=== PATIENT | female | born 1995 | race Caucasian/White ===

== ENCOUNTER 2021-06-10 13:22 | Emergency (ER) | payer BC, MEDICAID, SELFPAY ==
--- NOTE | ~2021-06-10 | US_ITS ---
EXAMINATION: US OB <= 14 weeks fetus DATE: 06/10/2021 16:50 INDICATION: Vaginal bleeding cramping during first trimester TECHNIQUE: Real-time pelvic transabdominal and transvaginal ultrasound was performed. COMPARISON: None. FINDINGS: The uterus measures 11.6 x 7.0 x 7.9 cm. There is an intrauterine gestational sac. A yolk sac is identified. heart motion is identified measuring 171 beats per minute (bpm) by M-mode Do ppler. The crown rump length measures 4.0 , which correlates with an estimated gestational age of 10 weeks and 6 day(s) (+/-) 7 day(s). The right ovary measures 3.4 x 2.2 x 2.0 cm. The left ovary measures 3.1 x 2.1 x 1.8 cm. There is nor mal vascular flow in the ovaries. There is no free fluid in the pelvis. IMPRESSION: 1. Live intrauterine with an estimated gestational age of 10 weeks and 6 day(s) (+/-) 7 day (s) and an estimated delivery date of 12/31/2021. Reviewed, dictated and finalized at location A. IMPRESSION: 1. Live intrauterine with an estimated gestational age of 10 weeks an d 6 day(s) (+/-) 7 day(s) and an estimated delivery date of 12/31/2021.
[2021-06-10 15:57] VITALS: BP 134/81; PULSE 71; RESP 18; O2SAT 100
--- NOTE | 2021-06-10 16:12 | ED.GENADULT ---
HPI - General Adult General Chief complaint: ELECTROCHEMIST Time Seen by Provider: 06/10/21 15:52 History of Present Illness HPI narrative: Patient is a 26-year-old female presents the emergency department with chief complaint of vaginal bleeding. The patient reports that she is approximately 12 to 14 weeks and today started having some cramping and noticed that she had a large amount of bleeding and filled a super heavy pad. The patient states that she feels as though her abdomen is not as large as it was previously and is concerned that she may be miscarrying. Patient reports this is her fifth Related Data Home Medications Medication Instructions Recorded Confirmed No Home Medications 06/10/21 06/10/21 Allergies Allergy/AdvReac Type Severity Reaction Status Date / Time adhesive tape Allergy Unknown Hives Verified 06/10/21 16:01 Penicillins Allergy Unknown Hives Verified 06/10/21 16:01 Review of Systems Review of Systems: A 10 system review of systems was completed on the patient and is negative except for what is stated in the HPI. Nursing and ancillary documentation was reviewed. Exam Narrative: GENERAL: Well-appearing, well-nourished, and in no acute distress. HEAD: Normocephalic, atraumatic. EYES: PERRLA and EOMI. ENT: Nares clear, no rhinorrhea or epistaxis. Mucous membranes moist. NECK: Supple. CHEST: Clear to auscultation. No respiratory distress. HEART: Regular rate and rhythm. No murmur heard. Normal peripheral pulses. ABDOMEN: Soft, nontender, nondistended, normal active bowel sounds. EXTREMITIES: Normal range of motion. No edema. SKIN: Warm, dry, no rash. NEURO: No focal deficits. Alert and oriented x3. PSYCH: Normal mood and affect. Course Vital Signs Vital signs: Vital Signs Pulse Rate 71 06/10/21 15:57 Respiratory Rate 18 06/10/21 15:57 Blood Pressure 134/81 06/10/21 15:57 Pulse Oximetry 100 06/10/21 15:57 Pulse Rate 71 06/10/21 15:57 Respiratory Rate 18 06/10/21 15:57 Blood Pressure 134/81 06/10/21 15:57 Pulse Oximetry 100 06/10/21 15:57 Medical Decision Making Vital Signs Vital Signs: Vital Signs Pulse Rate 71 06/10/21 15:57 Respiratory Rate 18 06/10/21 15:57 Blood Pressure 134/81 06/10/21 15:57 Pulse Oximetry 100 06/10/21 15:57 Pulse Rate 71 06/10/21 15:57 Respiratory Rate 18 06/10/21 15:57 Blood Pressure 134/81 06/10/21 15:57 Pulse Oximetry 100 06/10/21 15:57 Lab Data Result diagrams: 06/10/21 16:18 06/10/21 16:18 Labs: Lab Results 06/10/21 06/10/21 06/10/21 Range/Units 16:18 16:18 16:18 WBC 9.3 (4.5-10.0) K/mm3 RBC 4.31 (4.2-5.4) M/mm3 Hgb 12.9 (12.0-15.0) g/dL Hct 37.7 (37.0-47.0) % MCV 87.5 (80-100) fl MCH 29.9 (26-34) pg MCHC 34.2 (32-36) g/dl RDW 12.4 (11.5-14.5) % Plt Count 245 (150-375) k/mm3 MPV 10.1 (7.4-10.4) fl Immature Gran % (Auto) 0.5 (0-0.5) % Neut % (Auto) 72.7 (45.5-73.1) % Lymph % (Auto) 19.2 (18.3-44.2) % Allen % (Auto) 6.8 (2.6-8.5) % Eos % (Auto) 0.3 (0-4.4) % Baso % (Auto) 0.5 (0.2-1.2) % Lymph # (Auto) 1.78 (0.9-3.2) K/mm3 Allen # (Auto) 0.6 (0.1-0.6) K/mm3 Eos # (Auto) 0.0 (0-0.3) K/mm3 Baso # (Auto) 0.1 (0.0-0.1) K/mm3 Abs Immat Gran (auto) 0.05 H (0.00-0.031) K/mm3 Absolute Neuts (auto) 6.7 (1.3-6.7) K/mm3 Absolute Nucleated RBC 0.0 (0.0-0.012) K/mm3 Nucleated RBC % 0.0 (0.0-0.2) % Sodium (137-145) mmol/L Potassium (3.4-5.0) mmol/L Chloride (98-107) mmol/L Carbon Dioxide (22-30) mmol/L Anion Gap (8-16) mmol/L BUN (7-17) mg/dL Creatinine (0.7-1.0) mg/dL Estim Creat Clear Calc ml/min Estimated GFR (59 - ) Glucose (65-110) mg/dL Calcium (8.4-10.2) mg/dL Total Bilirubin (0.2-1.3) mg/dL AST (14-36) U/L ALT (4-35) U/L Alkaline Phosphatase (38-126
[2021-06-10] MEDS: SODIUM CHLORIDE 0.9% IV 1,000 ML 999 ML IV CONT (16:21)
[2021-06-10 16:31] LABS: Basophils Absolute Auto 0.1 K/mm3 (0.0-0.1); Basophils Percent Auto 0.5 % (0.2-1.2); Eosinophils Percent Auto 0.3 % (0-4.4); Hematocrit 37.7 % (37.0-47.0); Hemoglobin 12.9 g/dL (12.0-15.0); Immature Granulocyte Absolute 0.05 K/mm3 (0.00-0.031); Immature Granulocyte Percent A 0.5 % (0-0.5); Lymphocytes Absolute Auto 1.78 K/mm3 (0.9-3.2); Lymphocytes Percent Auto 19.2 % (18.3-44.2); Mean Corpuscular HGB Conc 34.2 g/dl (32-36); Mean Corpuscular Hemoglobin 29.9 pg (26-34); Mean Corpuscular Volume 87.5 fl (80-100); Mean Platelet Volume 10.1 fl (7.4-10.4); Monocytes Absolute Auto 0.6 K/mm3 (0.1-0.6); Monocytes Percent Auto 6.8 % (2.6-8.5); Neutrophils Absolute Auto 6.7 K/mm3 (1.3-6.7); Neutrophils Percent Auto 72.7 % (45.5-73.1); Platelet Count Result 245 k/mm3 (150-375); Red Blood Count 4.31 M/mm3 (4.2-5.4); Red Cell Distribution Width 12.4 % (11.5-14.5); White Blood Count 9.3 K/mm3 (4.5-10.0)
[2021-06-10 16:43] LABS: Add Urine Microscopic? YES; Appearance Urine Cloudy (Clear); Bilirubin Urine Negative (Negative); Blood Urine Negative (Negative); Color Urine Amber (Yellow); Glucose Urine UA Negative (Negative); Ketones Urine 2+ mg/dL (Negative); Leukocyte Esterase Ur Negative LEU/UL (Negative); Mucus Urine Heavy /lpf; Nitrate Urine Negative (Negative); Protein Urine 2+ mg/dL (Negative); Specific Grav Ur 1.029 (1.001-1.035); Squamous Epithelial Cell Urine Many /hpf (Few)
[2021-06-10 16:44] LABS: Alanine Aminotransferase 19 U/L (4-35); Albumin Level 4.9 g/dL (3.5-5.1); Alkaline Phosphatase 56 U/L (38-126); Anion Gap 12 mmol/L (8-16); Aspartate Amino Transferase 30 U/L (14-36); Bilirubin,Total 0.2 mg/dL (0.2-1.3); Blood Urea Nitrogen 9 mg/dL (7-17); Calcium 9.4 mg/dL (8.4-10.2); Carbon Dioxide 23 mmol/L (22-30); Chloride 103 mmol/L (98-107); Estimated CRCL calculation 106 ml/min; Estimated Glomerular Filt Rate > 60; Glucose 92 mg/dL (65-110); Potassium 3.5 mmol/L (3.4-5.0); Sodium 138 mmol/L (137-145)
[2021-06-10 18:39] VITALS: BP 132/76; PULSE 78; RESP 17; O2SAT 100
== END 2021-06-10 18:40 | disposition home or self-care (01) ==
PROVIDERS: Emergency Provider Emergency Medicine
DX: O20.0 Threatened abortion (principal); Z3A.10 10 weeks gestation of pregnancy
CPT/HCPCS: 36415; 76801; 80053; 81001; 84702; 85025; 85461; 87086; 87088; 96360; 99284; J7030

== ENCOUNTER 2021-07-06 18:32 | Observation (INO) | payer BC, MEDICAID, SELFPAY ==
--- NOTE | ~2021-07-06 | US_ITS ---
EXAMINATION: US OB limited EXAM DATE: 07/07/2021 07:30 INDICATION: vaginal bleeding, placenta check, well being VB. 2nd trimester. TECHNIQUE: Pelvic obstetrical transabdominal sonogram was performed by a technologist. There are mu ltiple grayscale and Doppler images available for interpretation. FINDINGS: There is a single fetus identified in breech presentation with a heart rate of 163 beats pe r minute. The placenta is located in the posterior position. Along the Placental Margin there is a fo kimberlee heterogeneous hypoechoic region between which appears to be between the placenta and the uterine wall, suspicious for retroplacental hematoma, region measuring 4.5 cm diameter 1.6 cm in thickness. IMPRESSION: Findings suspicious for small to moderate-sized acute retroplacental hematoma/abruption. I discussed this with nurse Perez at 07/07/2021 07:46 CDT. Reviewed, dictated and finalized at location A. IMPRESSION: Findings suspicious for small to moderate-sized acute retroplacent al hematoma/abruption. I discussed this with nurse Perez at 07/07/2021 07:46 CDT.
[2021-07-06 18:42] VITALS: BP 178/95; PULSE 121; RESP 18; O2SAT 99
--- NOTE | 2021-07-06 18:51 | ED.GENADULT ---
HPI - General Adult General Chief complaint: Vaginal Bleeding Stated complaint: 16 weeks , bleeding Time Seen by Provider: 07/06/21 18:43 Source: RN notes reviewed History of Present Illness HPI narrative: Patient presents emergency department from home for vaginal bleeding. Patient states she is approximately 16 weeks states that she started to have vaginal bleeding with lower abdominal cramping approximately 20 minutes ago. Patient states that she is and is followed by Dr. Malik she states she was seen in the office today and was given a injection of a medication for labor she denies any fevers or chills or any other symptoms Related Data Home Medications Medication Instructions Recorded Confirmed No Home Medications 06/10/21 06/10/21 Allergies Allergy/AdvReac Type Severity Reaction Status Date / Time adhesive tape Allergy Unknown Hives Verified 06/10/21 16:01 Penicillins Allergy Unknown Hives Verified 06/10/21 16:01 Review of Systems Review of Systems: Gen.: Denies fevers or chills ENT: Denies congestion Respiratory: Denies shortness of breath or cough CV: Denies chest pain or palpitations GI: Denies abdominal pain nausea, emesis or diarrhea see HPI Musculoskeletal: Denies back pain or muscle pain Neuro: Denies numbness, tingling, weakness or focal weakness Skin: Denies rash Except as documented, all other systems reviewed and negative COUNTS INCLUDE 234 BEDS AT THE [facility] Past Medical History Medical History (Updated 07/06/21 @ 20:25 by Trenton Dickey DO) Patient denies significant medical history Social History Social History (Updated 07/06/21 @ 18:52 by Trenton Dickey DO) Smoking status: Never smoker Exam Narrative: APPEARANCE: No acute distress, nontoxic, resting in bed EYES: EOMI HEENT: Normocephalic, atraumatic, OMM RESPIRATORY: No respiratory distress Clear to auscultation bilaterally with no rhonchi wheezing or rales. CARDIOVASCULAR: Regular rate and rhythm without murmurs rubs or gallops. ABDOMINAL: Soft, nontender, nondistended, no rebound or guarding : Normal external exam on amount dark maroon blood with clots in vaginal canal cervix is 1 cm no products of conception seen MUSCULOSKELETAl: Moves all extremities. No clubbing, cyanosis or edema. NEURO: Awake and alert. Following commands, speech normal, no focal deficits SKIN:: Warm, dry. No rashes lesions or abrasions PSYCHIATRIC: Normal affect/mood, Course Course Emergency Course: Nursing staff obtain heart tones I use bedside ultrasound and did view a intrauterine Discussed Dr. Malik presentation work-up patient has history of several deliveries at this time recommends admission to his service on the OB floor Discussed with patient and family results of workup and diagnosis. Discussed need for admission. Patient and family understand and agree to current treatment plan Vital Signs Vital signs: Vital Signs Pulse Rate 121 H 07/06/21 18:42 Respiratory Rate 18 07/06/21 18:42 Blood Pressure 178/95 H 07/06/21 18:42 Pulse Oximetry 99 07/06/21 18:42 Pulse Rate 88 07/06/21 19:55 Respiratory Rate 18 07/06/21 19:55 Blood Pressure 155/90 H 07/06/21 19:55 Pulse Oximetry 99 07/06/21 19:55 Medical Decision Making Vital Signs Vital Signs: Vital Signs Pulse Rate 121 H 07/06/21 18:42 Respiratory Rate 18 07/06/21 18:42 Blood Pressure 178/95 H 07/06/21 18:42 Pulse Oximetry 99 07/06/21 18:42 Pulse Rate 88 07/06/21 19:55 Respiratory Rate 18 07/06/21 19:55 Blood Pressure 155/90 H 07/06/21 19:55 Pulse Oximetry 99 07/06/21 19:55 Lab Data Result diagrams: 07/06/21 18:59 Labs: Lab Results 07/06/21 07/06/21 07/06/21 Range/Units 18:59 18:59 18:59 WBC 14.2 H (4.5-10.0) K/mm3 RBC 3.78 L (4.2-5.4) M/mm3 Hgb 11.7 L (12.0-15.0) g/dL Hct 33.4 L (37.0-47.0) % MCV 88.4 (80-100) fl MCH 31.0 (26-34) pg MCHC 3
[2021-07-06 19:06] LABS: Basophils Percent Auto 0.2 % (0.2-1.2); Eosinophils Absolute Auto 0.1 K/mm3 (0-0.3); Eosinophils Percent Auto 0.6 % (0-4.4); Hematocrit 33.4 % (37.0-47.0); Hemoglobin 11.7 g/dL (12.0-15.0); Immature Granulocyte Absolute 0.08 K/mm3 (0.00-0.031); Immature Granulocyte Percent A 0.6 % (0-0.5); Lymphocytes Absolute Auto 2.71 K/mm3 (0.9-3.2); Lymphocytes Percent Auto 19.2 % (18.3-44.2); Mean Corpuscular Volume 88.4 fl (80-100); Mean Platelet Volume 10.1 fl (7.4-10.4); Monocytes Absolute Auto 0.7 K/mm3 (0.1-0.6); Monocytes Percent Auto 5.2 % (2.6-8.5); Neutrophils Absolute Auto 10.5 K/mm3 (1.3-6.7); Neutrophils Percent Auto 74.2 % (45.5-73.1); Platelet Count Result 276 k/mm3 (150-375); Red Blood Count 3.78 M/mm3 (4.2-5.4); Red Cell Distribution Width 12.9 % (11.5-14.5); White Blood Count 14.2 K/mm3 (4.5-10.0)
[2021-07-06] MEDS: SODIUM CHLORIDE 0.9% IV 1,000 ML 999 ML IV CONT (19:11)
[2021-07-06 19:55] VITALS: BP 155/90; PULSE 88; RESP 18; O2SAT 99
[2021-07-06 20:30] VITALS: TEMP 36.5
[2021-07-06 20:31] VITALS: BP 135/90; PULSE 70; RESP 20
[2021-07-06 21:00] VITALS: BP 124/75; PULSE 62; RESP 18; BMI 24.5
[2021-07-06 21:01] VITALS: BP 124/75; PULSE 62
--- NOTE | 2021-07-06 21:41 | OBADM ---
This patient, Cinthia Ba, admitted to the OB room Labor/Delivery/Recovery 110 for observation. Patient/family oriented to hospital policies and general routines including ID bracelet, bed and alarms, visiting hours, pain management, procedures, bathroom and other care routines, personal items, smoking policy, room service/diet, and visiting hours. Patient/Family are encouraged to report perceived risks to care and to ask questions if they do not understand what they are told or what they should do.
[2021-07-06 21:56] LABS: Amphetamine Screen Urine Negative (Negative); Barbiturate Screen Urine Negative (Negative); Benzodiazepines Screen Urine Negative (Negative); Cannabinoid Screen Urine Positive (Negative); Cocaine Screen Urine Negative (Negative); Methadone Screen Urine Negative (Negative); Opiate Screen Urine Negative (Negative); Phencyclidine Screen Urine Negative (Negative)
--- NOTE | 2021-07-07 00:34 | PC.NURSE ---
into room to assess pt, pt and family member sleeping.
[2021-07-07 02:41] VITALS: BP 120/72; PULSE 51
[2021-07-07 02:42] VITALS: BP 120/72; PULSE 51; RESP 18; TEMP 36.6
--- NOTE | 2021-07-07 08:25 | PM.IMHP ---
H&P: HPI History of Present Illness Date/Time: 07/07/21 08:25 This patient is a 36-year-old 5 para 0404 with for deliveries who presented with vaginal bleeding to the emergency department. Her bleeding was marked. She was examined and found to have a closed cervix. Her ultrasound showed a viable IUP. This morning she was had a more detailed ultrasound the shoulder a retroplacental hematoma. Her bleeding has resolved at this time. She denies any cramping. She denies any nausea, vomiting, fever, Chills. She denies any chest pain or shortness of breath. Chief Complaint: Vaginal bleeding Review of Systems Constitutional: Constitutional: Denies difficulty sleeping, Denies excessive sweating, Denies fatigue and Denies fever(s) Eyes: Eyes: Denies no additional eye complaints, Denies blind spots, Denies blurry vision, Denies irritation and Denies itchy eyes ENT: Denies dry mouth, Denies ear discharge, Denies facial pain, Denies nasal congestion, Denies nasal discharge, Denies tinnitus and Denies sinus pain Cardiovascular: Cardiovascular: Denies chest pain, Denies edema, Denies irregular heart rhythm, Denies leg edema, Denies lightheadedness and Denies dyspnea on exertion Respiratory: Respiratory: Denies chest congestion, Denies cough, Denies hemoptysis, Denies pain on inspiration and Denies pain with cough Gastrointestinal: Gastrointestinal: Denies no additional gastrointestinal complaints, Denies belching, Denies melena, Denies bloating, Denies hematochezia and Denies change in bowel habits Genitourinary: Genitourinary: Reports as per HPI Musculoskeletal: Musculoskeletal: Denies no additional musculoskeletal complaints, Denies abnormal gait, Denies back pain, Denies myalgias and Denies limited range of motion Integumentary/Breasts: Skin/Breast: Reports system reviewed and no additional complaints, except as docu, Denies swelling, Denies change in pigmentation, Denies changing lesions and Denies dry skin Neurologic: Denies confusion, Denies vertigo, Denies dizziness, Denies headache(s) and Denies lack of coordination Psychiatric: Psychiatric: Denies hopelessness, Denies irritability, Denies anhedonia, Denies memory loss and Denies mood swings Endocrine: Endocrine: Denies deepening of the voice, Denies excessive sweating, Denies fatigue and Denies flushing Hematologic/Lymphatic: Hematologic/Lymphatic: Denies no additional hematologic/lymphatic complaints Allergic/Immunologic: Allergic/Immunologic: Denies no additional allergic/immunologic complaints PMFSH Past Medical History Medical History (Updated 07/07/21 @ 08:30 by Jimmy Malik MD) Patient denies significant medical history Social History Social History (Updated 07/06/21 @ 18:52 by Trenton Dickey DO) Smoking status: Never smoker Meds Home Medications and Allergies Home Medications Medication Instructions Recorded Confirmed Type Classic 1 tablet PO DAILY 07/06/21 07/06/21 History Allergies Allergy/AdvReac Type Severity Reaction Status Date / Time adhesive tape Allergy Unknown Hives Verified 06/10/21 16:01 Penicillins Allergy Unknown Hives Verified 06/10/21 16:01 Vital Signs Vital Signs - 24 hr 07/06/21 18:42 07/06/21 19:55 07/06/21 20:31 Temperature Pulse Rate 121 H 88 70 Respiratory Rate 18 18 Blood Pressure 178/95 H 155/90 H 135/90 Pulse Oximetry 99 99 07/06/21 21:00 07/07/21 02:42 Temperature 97.9 F Pulse Rate 62 51 L Respiratory Rate 18 18 Blood Pressure 124/75 120/72 Pulse Oximetry Exam Const: General: healthy appearing, comfortable and no acute distress Resp: Auscultation: clear to auscultation bilaterally, no rales, no rhonchi and no wheezes Cardio: Rate: regular rate Heart sounds: no click, no murmurs and no rubs GI: Inspection: non-distended Auscultation: normal bowel sounds Extrem: General: normal to inspection, no pedal edema and no calf tenderness H&P: Results Labs L
[2021-07-07 08:28] VITALS: BP 123/61; PULSE 77
== END 2021-07-07 10:01 | disposition home or self-care (01) ==
LOC: ANHED 19:28 → ANHLDR 19:38
PROVIDERS: Admitting Provider Obstetrics & Gynecology; Emergency Provider Emergency Medicine; Visit Provider Obstetrics & Gynecology
DX: O20.0 Threatened abortion (principal); Z3A.15 15 weeks gestation of pregnancy; O45.92 Premature separation of placenta, unspecified, second trimester
CPT/HCPCS: 36415; 76815; 80307; 84702; 85025; 86850; 86900; 86901; 96365; 99285; G0378; J0131; J7030

== ENCOUNTER 2021-08-27 10:19 | Observation (INO) | payer BC, MEDICAID, SELFPAY ==
--- NOTE | ~2021-08-27 | US_ITS ---
US OB limited, US OB transvaginal 08/27/2021 11:51 Indication: Vaginal spotting. Pelvic pressure. Procedure: High-resolution ultrasound of the pelvis including transabdominal and transvaginal examina tion. Comparison: Comparison ultrasound dated 07/07/2021 Findings: There is a single living intrauterine in vertex presentation with heart rat e is 146 BPM. Placenta is fundal without previa. Cervical length is 2.8 cm. Amniotic fluid is subject ively normal. No evidence for subchorionic hemorrhage. Impression: 1: Single living intrauterine in vertex presentation. No significant abnormality identified . Reviewed, dictated and finalized at location B. [employer] Impression: 1: Single living intrauterine in vertex presentation. No significant abnormality identified. Impression: 1: Single living intrauterine in vertex presentation. No significant abnormality identified.
--- NOTE | 2021-08-27 10:19 | OBADM ---
This patient, Cinthia Ba, admitted to the OB room OB Post 115 for observation. Patient/family oriented to hospital policies and general routines including ID bracelet, bed and alarms, visiting hours, pain management, procedures, bathroom and other care routines, personal items, smoking policy, room service/diet, and visiting hours. Patient/Family are encouraged to report perceived risks to care and to ask questions if they do not understand what they are told or what they should do.
[2021-08-27 10:53] VITALS: BP 135/80; PULSE 79; RESP 20; TEMP 36.2
[2021-08-27 11:34] LABS: Add Urine Microscopic? YES; Appearance Urine Cloudy (Clear); Bacteria Urine Trace /hpf; Bilirubin Urine Negative (Negative); Blood Urine 2+ (Negative); Color Urine Yellow (Yellow); Glucose Urine UA Negative (Negative); Ketones Urine Negative (Negative); Leukocyte Esterase Ur Negative LEU/UL (Negative); Mucus Urine Few /lpf; Nitrate Urine Negative (Negative); Protein Urine Negative (Negative); RBC Urine 0-2 /hpf (0-2); Specific Grav Ur 1.021 (1.001-1.035); Squamous Epithelial Cell Urine Occasional /hpf (Few); Urobilinogen Urine Negative mg/dL (<2.0); WBC Urine 0-3 /hpf
[2021-08-27 11:41] VITALS: BMI 26.1
[2021-08-27 12:15] LABS: Fetal Fibronectin Positive
--- NOTE | 2021-10-04 20:17 | P.PNOB_ITS ---
OB - Triage/Final Diagnosis Visit Information Comments/Additional reasons for admission: I have assessed the risk for this patient, Cinthia Ba, and determined that she would benefit from observation care. Evaluation Laboratory results: Laboratory Tests 08/27/21 08/27/21 11:10 11:11 Urine Color Yellow Urine Appearance Cloudy H Urine pH 6.0 Ur Specific Armstrong 1.021 Urine Protein Negative Urine Glucose (UA) Negative Urine Ketones Negative Ur Blood (Man) 2+ H Urine Nitrate Negative Urine Bilirubin Negative Urine Urobilinogen Negative Leukocyte Esterase Rfl Negative Urine RBC 0-2 Urine WBC 0-3 Ur Squamous Epith Cells Occasional Urine Bacteria Trace Urine Mucus Few H Fibronectin Positive Final Diagnosis (1) Vaginal bleeding affecting early : Code(s): O20.9 - Hemorrhage in early , unspecified Status: Acute
== END 2021-08-27 12:59 | disposition home or self-care (01) ==
PROVIDERS: Admitting Provider Obstetrics & Gynecology; Visit Provider Obstetrics & Gynecology
DX: O46.92 Antepartum hemorrhage, unspecified, second trimester (principal); Z3A.22 22 weeks gestation of pregnancy
CPT/HCPCS: 76815; 76817; 81001; 82731; G0378; G0379

== ENCOUNTER 2021-08-28 07:57 | Inpatient (IN) | payer BC, MEDICAID, SELFPAY ==
[2021-08-28] VITALS (46 sets, daily range): BP systolic 104–220; BP diastolic 40–195; PULSE 62–119; O2SAT 97–100; BMI 26.4
[2021-08-28] MEDS: LACTATED RINGERS 1,000 ML 125 ML (08:14)
[2021-08-28] MEDS: BETAMETHASONE SOD PHOS/ACETATE 30 MG/5 ML VIAL 12 MG IM (08:20)
[2021-08-28] MEDS: MAGNESIUM SULF 4 GM/WATER100ML 4 GM/100 ML BAG IVPB (08:22)
[2021-08-28] MEDS: LACTATED RINGERS 1,000 ML 125 ML IV CONT (08:30)
[2021-08-28 08:37] LABS: Basophils Absolute Auto 0.1 K/mm3 (0.0-0.1); Basophils Percent Auto 0.5 % (0.2-1.2); Eosinophils Absolute Auto 0.1 K/mm3 (0-0.3); Eosinophils Percent Auto 0.7 % (0-4.4); Hematocrit 32.4 % (37.0-47.0); Hemoglobin 11.5 g/dL (12.0-15.0); Immature Granulocyte Absolute 0.07 K/mm3 (0.00-0.031); Immature Granulocyte Percent A 0.6 % (0-0.5); Lymphocytes Absolute Auto 2.28 K/mm3 (0.9-3.2); Lymphocytes Percent Auto 20.6 % (18.3-44.2); Mean Corpuscular HGB Conc 35.5 g/dl (32-36); Mean Corpuscular Hemoglobin 30.8 pg (26-34); Mean Corpuscular Volume 86.9 fl (80-100); Monocytes Absolute Auto 0.4 K/mm3 (0.1-0.6); Neutrophils Absolute Auto 8.2 K/mm3 (1.3-6.7); Neutrophils Percent Auto 73.6 % (45.5-73.1); Platelet Count Result 272 k/mm3 (150-375); Red Blood Count 3.73 M/mm3 (4.2-5.4); Red Cell Distribution Width 12.4 % (11.5-14.5); White Blood Count 11.1 K/mm3 (4.5-10.0)
[2021-08-28] MEDS: CLINDAMYCIN 900 MG/D5W 50 ML 900 MG/50 ML PIGGYBACK 50 MG IVPB (08:39)
[2021-08-28] MEDS: OXYTOCIN 30 UNITS/NS 500 ML 30 UNITS/500 ML BAG 999 UNITS IV CONT (08:40)
[2021-08-28 08:43] LABS: Anion Gap 13 mmol/L (8-16); Blood Urea Nitrogen 8 mg/dL (7-17); Calcium 9.2 mg/dL (8.4-10.2); Carbon Dioxide 17 mmol/L (22-30); Chloride 104 mmol/L (98-107); Estimated Glomerular Filt Rate > 60; Glucose 96 mg/dL (65-110); Potassium 3.2 mmol/L (3.4-5.0); Sodium 134 mmol/L (137-145)
--- NOTE | 2021-08-28 08:53 | PM.OBPRVD ---
OB - Delivery Note Procedure Delivery date: 08/28/21 events: Labor < 37 Weeks and Previous Intrapartal events: Precipitous Labor < 3 hours Delivery monitor: external FHT and external uterine Route of delivery: Quantitative Blood Loss (ml): 127 Anesthesia type: Epidural Imperial Baby Date of : 08/28/21 Time of : 08:40 Weeks of gestation at delivery: 23 gender: Male presentation: vertex
--- NOTE | 2021-08-28 08:57 | WPDANESEPPF ---
Anes - Initial Pre Proc Eval Date/Time: 08/28/21 08:57 Surgeon: Jimmy Malik MD Pre Op Diagnosis: Bleeding Patient Data Age: 26 Gender: F Height: Weight: Last Vital Signs Pulse 84 08/28/21 08:55 BP 120/65 08/28/21 08:55 Pulse Ox 100 08/28/21 08:55 Allergies Allergy/AdvReac Type Severity Reaction Status Date / Time adhesive tape Allergy Unknown Hives Verified 06/10/21 16:01 Penicillins Allergy Unknown Hives Verified 06/10/21 16:01 Home Medications Medication Instructions Recorded Confirmed Type Classic 1 tablet PO DAILY 07/06/21 08/27/21 History progesterone micronized 200 mg VAGINAL HS 08/27/21 08/27/21 History Laboratory Tests 08/28/21 08/28/21 08/28/21 08:26 08:26 08:26 WBC 11.1 K/mm3 H K/mm3 (4.5-10.0) RBC 3.73 M/mm3 L M/mm3 (4.2-5.4) Hgb 11.5 g/dL L g/dL (12.0-15.0) Hct 32.4 % L % (37.0-47.0) MCV 86.9 fl fl (80-100) MCH 30.8 pg pg (26-34) MCHC 35.5 g/dl g/dl (32-36) RDW 12.4 % % (11.5-14.5) Plt Count 272 k/mm3 k/mm3 (150-375) MPV 10.0 fl fl (7.4-10.4) Immature Gran % (Auto) 0.6 % H % (0-0.5) Neut % (Auto) 73.6 % H % (45.5-73.1) Lymph % (Auto) 20.6 % % (18.3-44.2) Davie % (Auto) 4.0 % % (2.6-8.5) Eos % (Auto) 0.7 % % (0-4.4) Baso % (Auto) 0.5 % % (0.2-1.2) Lymph # (Auto) 2.28 K/mm3 K/mm3 (0.9-3.2) Davie # (Auto) 0.4 K/mm3 K/mm3 (0.1-0.6) Eos # (Auto) 0.1 K/mm3 K/mm3 (0-0.3) Baso # (Auto) 0.1 K/mm3 K/mm3 (0.0-0.1) Abs Immat Gran (auto) 0.07 K/mm3 H K/mm3 (0.00-0.031) Absolute Neuts (auto) 8.2 K/mm3 H K/mm3 (1.3-6.7) Absolute Nucleated RBC 0.0 K/mm3 K/mm3 (0.0-0.012) Nucleated RBC % 0.0 % % (0.0-0.2) Sodium 134 mmol/L L mmol/L (137-145) Potassium 3.2 mmol/L L mmol/L (3.4-5.0) Chloride 104 mmol/L mmol/L (98-107) Carbon Dioxide 17 mmol/L L mmol/L (22-30) Anion Gap 13 mmol/L mmol/L (8-16) BUN 8 mg/dL mg/dL (7-17) Creatinine 0.60 mg/dL L mg/dL (0.7-1.0) Estim Creat Clear Calc Not Reportable Estimated GFR > 60 (59 - ) Glucose 96 mg/dL mg/dL (65-110) Calcium 9.2 mg/dL mg/dL (8.4-10.2) RPR Pending Patient hx anesthesia problems: none Family hx anesthesia problems: none Results Review: All pre-operative results and documents have been reviewed as part of the pre-operative evaluation. [facility] Past Medical History Medical History Bipolar disorder PTSD (post-traumatic stress disorder) Social History Social History Smoking status: Never smoker Anes - Eval Final PreProcedure Day of Procedure 08/28/21 08:57 Patient weight: normal Heart: regular rate and rhythm ASA classification: III Emergent: no Anesthetic plan: proceed Anesthesia type and monitoring: regional epidural and standard monitoring Results Review: All pre-operative results and documents have been reviewed as part of the pre-operative evaluation. Informed Consent: The patient's anesthetic plan and its attendant risks and benefits were discussed with the patient/family/POA. Questions were solicited and answers provided to the satisfaction of the patient/family/POA.
--- NOTE | 2021-08-28 09:01 | PM.IMHP ---
H&P: HPI History of Present Illness Date/Time: 08/28/21 09:01 This patient is a 26-year-old 5 para 09/28/2003 with 3 deliveries. She has a history of a 30, 24 and 29 week deliveries. She presented today in active labor. She had dilated cervix and bulging bag of membranes. She had painful cervical contractions. She had vaginal bleeding. She denies any chest pain or shortness of breath. She denies any nausea, vomiting, fever, chills. Denies any blurry vision, epigastric Pain, swelling. she has history of bipolar disorder. She has history of surface herpes simplex. There was subchorionic hematoma in the 1st trimester. It was 7 cm. She has to vessel umbilical cord. She was small for gestational age . She had 2nd trimester bleeding on 08/18 was seen by MFM on 08/18/2011 30. She has history of -induced hypertension. There is history of posttraumatic stress disorder as well. Chief Complaint: labor Review of Systems Review of Systems: All systems reviewed & are unremarkable except as noted in HPI and below Constitutional: Constitutional: Denies chills, Denies fatigue, Denies fever(s) and Denies weakness Eyes: Eyes: Denies blurry vision, Denies change in vision, Denies loss of peripheral vision, Denies loss of vision, Denies other visual disturbances and Denies eye pain ENT: Denies vertigo, Denies dizziness, Denies hearing loss, Denies mouth pain, Denies nasal obstruction, Denies neck mass and Denies neck pain Cardiovascular: Cardiovascular: Denies chest pain, Denies diaphoresis, Denies syncope, Denies leg edema and Denies dyspnea Respiratory: Respiratory: Denies chest congestion, Denies cough, Denies hemoptysis, Denies dyspnea and Denies wheezing Gastrointestinal: Gastrointestinal: Denies abdominal pain, Denies constipation, Denies diarrhea, Denies nausea and Denies vomiting Genitourinary: Genitourinary: Denies hematuria, Denies change in libido, Denies nocturia, Denies genital lesions, Denies flank pain and Denies urinary urgency Musculoskeletal: Musculoskeletal: Denies abnormal gait, Denies back pain, Denies myalgias, Denies arthralgias, Denies joint swelling, Denies muscle weakness and Denies neck pain Integumentary/Breasts: Skin/Breast: Denies swelling, Denies breast pain, Denies breast mass, Denies dry skin, Denies nipple discharge, Denies unusual bruising and Denies jaundice Neurologic: Denies Neuro-related abnormal movements, Denies Abnormal speech present, Denies abnormal gait, Denies behavioral changes, Denies confusion, Denies vertigo, Denies dizziness, Denies syncope, Denies loss of vision, Denies memory loss, Denies convulsions and Denies weakness Psychiatric: Psychiatric: Denies abnormal sleep pattern, Denies behavioral changes, Denies change in libido, Denies confusion, Denies depression, Denies anhedonia and Denies memory loss Endocrine: Endocrine: Reports no additional endocrine complaints, Denies change in libido and Denies fatigue Hematologic/Lymphatic: Hematologic/Lymphatic: Reports no additional hematologic/lymphatic complaints Allergic/Immunologic: Allergic/Immunologic: Reports no additional allergic/immunologic complaints and Denies wheezing PMFSH Past Medical History Medical History Bipolar disorder PTSD (post-traumatic stress disorder) Social History Social History Smoking status: Never smoker Meds Home Medications and Allergies Home Medications Medication Instructions Recorded Confirmed Type Classic 1 tablet PO DAILY 07/06/21 08/27/21 History progesterone micronized 200 mg VAGINAL HS 08/27/21 08/27/21 History Allergies Allergy/AdvReac Type Severity Reaction Status Date / Time adhesive tape Allergy Unknown Hives Verified 06/10/21 16:01 Penicillins Allergy Unknown Hives Verified 06/10/21 16:01 Vital Signs Vital Signs - 24 hr 12
[2021-08-28] MEDS: OXYTOCIN 30 UNITS/NS 500 ML 30 UNITS/500 ML BAG 125 UNITS IV CONT (09:20)
[2021-08-28] MEDS: IBUPROFEN 600 MG TABLET (09:23)
--- NOTE | 2021-08-28 10:18 | LDADM ---
This patient, Cinthia Ba, was admitted to Labor/Delivery/Recovery 103 on 08/28/21 at 07:57. Plans for labor, pain management and were discussed with patient. Patient/family oriented to hospital policies and general routines including ID bracelet, bed and alarms, visiting hours, pain management, procedures, bathroom and other care routines, personal items, smoking policy, room service/diet and guest tray routines, security routines, and visiting hours. Patient/Family are encouraged to report perceived risks to care and to ask questions if they do not understand what they are told or what they should do. See OBIX for further documentation.
--- NOTE | 2021-08-28 12:19 | PC.NURSE ---
1206 - Pt pulled her I at 1200. She decided to sign out AMA after risks of leaving the hospital were discussed and verbalized understanding. Risk included and not limited to the possibility of bleeding to .
[2021-08-31 13:25] LABS: Rapid Plasma Reagin Non-Reactive (NonReactive)
--- NOTE | 2021-10-04 20:21 | PM.OBPNVD ---
OB - PN: Subj Subjective Date/time seen: 10/04/21 20:21 The patient left against medical advice during this encounter. OB - PN: Obj Data Labs CBC & Chem 7: 08/28/21 08:26 08/28/21 08:26 OB - PN A/P Time Spent With Patient Time: Total time spent is greater than 50% in coordination of care (as documented) at patient's floor/unit and/or counseling patient:
== END 2021-08-28 12:06 | disposition left against medical advice (07) | DRG 806 ==
LOC: ANHOBPP 08:05 → ANHLDR 09:54
PROVIDERS: Admitting Provider Obstetrics & Gynecology; Visit Provider Obstetrics & Gynecology
DX: O60.12X0 Preterm labor second trimester with preterm delivery second trimester, not applicable or unspecified (principal); O98.52 Other viral diseases complicating childbirth; Z37.0 Single live birth; O62.0 Primary inadequate contractions; O62.3 Precipitate labor; O36.5920 Maternal care for other known or suspected poor fetal growth, second trimester, not applicable or unspecified; B00.9 Herpesviral infection, unspecified; O42.912 Preterm premature rupture of membranes, unspecified as to length of time between rupture and onset of labor, second trimester; O76 Abnormality in fetal heart rate and rhythm complicating labor and delivery; O43.122 Velamentous insertion of umbilical cord, second trimester; O34.219 Maternal care for unspecified type scar from previous cesarean delivery; Z3A.23 23 weeks gestation of pregnancy
CPT/HCPCS: 36415; 80048; 85025; 86592; 86850; 86900; 86901; A9270; J0702; J2590; J2795; J3475; J7120